=== PATIENT | female | born 1955 | race Caucasian/White ===

== ENCOUNTER → 2016-08-25 | Outpatient (CLI) | payer OTHER ==
[2016-08-25 10:55] LABS: CH 31.7; CHCM 33.5; HCT 40.7 % (34.0-46.0); HDW 2.22; HGB 13.3 gm/dL (11.4-16.0); MCHC 32.6 g/dL (31.0-37.0); MCV 95.1 fL (80.0-100.0); Mean Platelet Volume 8.5; RBC 4.28 m/uL (3.80-5.40); RDW 12.8 % (11.5-15.5); WBC 4.1 k/uL (3.8-10.6)
[2016-08-25 10:57] LABS: ALT 56 U/L (9-52); AST 35 U/L (14-36); Alkaline Phosphatase 90 U/L (38-126); Anion Gap 8 mmol/L; Blood Urea Nitrogen 17 mg/dL (7-17); Calcium 9.5 mg/dL (8.4-10.2); Carbon Dioxide 29 mmol/L (22-30); Chloride 106 mmol/L (98-107); Cholesterol 256 mg/dL (<200); Glucose 94 mg/dL (74-99); Non-African American GFR(MDRD) >60 (>60 ml/min/1.73 sqM); Potassium 4.7 mmol/L (3.5-5.1); Sodium 143 mmol/L (137-145); Total Bilirubin 0.8 mg/dL (0.2-1.3); Total Protein 7.2 g/dL (6.3-8.2); Triglycerides 88 mg/dL (<150)
[2016-08-25 11:20] LABS: HDL Cholesterol 127 mg/dL (40-60)
== END | disposition home or self-care (01) ==
LOC: LABWHC1 10:20
PROVIDERS: ATTEND Internal Medicine
DX: Z00.00 Encounter for general adult medical examination without abnormal findings (principal); E78.2 Mixed hyperlipidemia; M19.90 Unspecified osteoarthritis, unspecified site
CPT/HCPCS: 36415; 80053; 80061; 84439; 84443; 85027

== ENCOUNTER → 2016-11-22 | Outpatient (CLI) | payer OTHER ==
[2016-11-22 11:02] LABS: ALT 53 U/L (9-52); AST 43 U/L (14-36); Cholesterol 174 mg/dL (<200); Creatine Kinase 47 U/L (30-135); HDL Cholesterol 105 mg/dL (40-60); Triglycerides 91 mg/dL (<150)
== END ==
LOC: LABWHC1 09:44
PROVIDERS: ATTEND Internal Medicine
DX: E78.2 Mixed hyperlipidemia (principal)
CPT/HCPCS: 36415; 80061; 82550; 84450; 84460

== ENCOUNTER → 2017-02-26 | Outpatient (CLI) | payer OTHER ==
[2017-02-26 11:36] LABS: ALT 38 U/L (9-52); AST 26 U/L (14-36); Cholesterol 175 mg/dL (<200); Creatine Kinase 38 U/L (30-135); HDL Cholesterol 104 mg/dL (40-60); Triglycerides 97 mg/dL (<150)
== END | disposition home or self-care (01) ==
LOC: LABWHC1 10:30
PROVIDERS: ATTEND Internal Medicine
DX: E78.2 Mixed hyperlipidemia (principal)
CPT/HCPCS: 36415; 80061; 82550; 84450; 84460

== ENCOUNTER → 2017-08-23 | Outpatient (CLI) | payer OTHER ==
--- NOTE | 2017-08-24 09:52 | MM ---
Reason for exam: screening (asymptomatic). Last mammogram was performed 1 year and 5 months ago. History: Patient is postmenopausal, has history of other cancer at age 29, and is nulliparous. Physical Findings: A clinical breast exam by your physician is recommended on an annual basis and results should be correlated with mammographic findings. MG Screening Mammo w CAD Bilateral CC and MLO view(s) were taken. Prior study comparison: March 15, 2016, bilateral MG screening mammo w CAD. March 10, 2015, bilateral MG screening mammo w CAD. The breast tissue is heterogeneously dense. This may lower the sensitivity of mammography. There is no discrete abnormality. No significant changes when compared with prior studies. ASSESSMENT: Negative, BI-RAD 1 RECOMMENDATION: Routine screening mammogram of both breasts in 1 year.
== END | disposition home or self-care (01) ==
LOC: RADMAMWWP 11:07
PROVIDERS: ATTEND Obstetrics & Gynecology
DX: Z12.31 Encounter for screening mammogram for malignant neoplasm of breast (principal)
CPT/HCPCS: 77067

== ENCOUNTER → 2017-08-31 | Outpatient (CLI) | payer OTHER ==
[2017-08-31 11:49] LABS: HCT 40.9 % (34.0-46.0); HGB 13.4 gm/dL (11.4-16.0); MCHC 32.7 g/dL (31.0-37.0); MCV 94.9 fL (80.0-100.0); Mean Platelet Volume 8.7; Platelet Count 180 k/uL (150-450); RBC 4.31 m/uL (3.80-5.40); RDW 13.4 % (11.5-15.5); WBC 5.1 k/uL (3.8-10.6)
[2017-08-31 12:25] LABS: Anion Gap 10 mmol/L; Blood Urea Nitrogen 13 mg/dL (7-17); Calcium 9.6 mg/dL (8.4-10.2); Carbon Dioxide 29 mmol/L (22-30); Chloride 105 mmol/L (98-107); Cholesterol 195 mg/dL (<200); Glucose 89 mg/dL (74-99); HDL Cholesterol 106 mg/dL (40-60); LDL Cholesterol,Calculated 74 mg/dL (0-99); Potassium 4.2 mmol/L (3.5-5.1); Sodium 144 mmol/L (137-145); Triglycerides 75 mg/dL (<150)
== END | disposition home or self-care (01) ==
LOC: LABWHC1 11:28
PROVIDERS: ATTEND Internal Medicine
DX: E78.2 Mixed hyperlipidemia (principal); M19.90 Unspecified osteoarthritis, unspecified site
CPT/HCPCS: 36415; 80048; 80061; 85027

== ENCOUNTER → 2018-03-01 | Outpatient (CLI) | payer OTHER ==
[2018-03-01 11:31] LABS: Cholesterol 184 mg/dL (<200); HDL Cholesterol 107 mg/dL (40-60); LDL Cholesterol,Calculated 60 mg/dL (0-99); Triglycerides 84 mg/dL (<150)
== END | disposition home or self-care (01) ==
LOC: LABWHC1 10:31
PROVIDERS: ATTEND Internal Medicine
DX: E78.2 Mixed hyperlipidemia (principal)
CPT/HCPCS: 36415; 80061

== ENCOUNTER → 2018-09-26 | Outpatient (CLI) | payer OTHER ==
[2018-09-26 13:10] LABS: HGB 13.9 gm/dL (11.4-16.0); MCH 31.2 pg (25.0-35.0); MCHC 32.2 g/dL (31.0-37.0); MCV 96.9 fL (80.0-100.0); Platelet Count 167 k/uL (150-450); RBC 4.44 m/uL (3.80-5.40); RDW 12.9 % (11.5-15.5); WBC 7.2 k/uL (3.8-10.6)
[2018-09-26 19:45] LABS: T4, Free (Free Thyroxine) 1.2 ng/dL (0.80-1.80)
[2018-09-26 20:26] LABS: Albumin 4.3 g/dL (3.80-4.90); Albumin/Globulin Ratio 2.05 (1.60-3.17); Anion Gap 9.6 mmol/L (4.00-12.00); Calcium 9.8 mg/dL (8.7-10.3); Carbon Dioxide 29.4 mmol/L (21.6-31.8); Globulin 2.1 g/dL (1.6-3.3); Potassium 4.7 mmol/L (3.5-5.5); Total Bilirubin 0.6 mg/dL (0.2-1.2); Total Protein 6.4 g/dL (6.2-8.2)
== END | disposition home or self-care (01) ==
LOC: LABWHC1 11:59
PROVIDERS: ATTEND Internal Medicine
DX: Z00.00 Encounter for general adult medical examination without abnormal findings (principal); E78.2 Mixed hyperlipidemia; M19.90 Unspecified osteoarthritis, unspecified site
CPT/HCPCS: 36415; 80053; 80061; 84439; 84443; 85027

== ENCOUNTER → 2018-12-10 | Outpatient (CLI) | payer OTHER ==
--- NOTE | 2018-12-11 12:21 | MM ---
Reason for exam: screening (asymptomatic). Last mammogram was performed 1 year and 4 months ago. History: Patient is postmenopausal, has history of other cancer at age 29, and is nulliparous. Physical Findings: A clinical breast exam by your physician is recommended on an annual basis and results should be correlated with mammographic findings. MG Screening Mammo w CAD Bilateral CC and MLO view(s) were taken. Prior study comparison: August 23, 2017, bilateral MG screening mammo w CAD. March 15, 2016, bilateral MG screening mammo w CAD. The breast tissue is heterogeneously dense. This may lower the sensitivity of mammography. Stable benign calcifications. There is no discrete abnormality. No significant changes when compared with prior studies. ASSESSMENT: Benign, BI-RAD 2 RECOMMENDATION: Routine screening mammogram of both breasts in 1 year.
== END | disposition home or self-care (01) ==
LOC: RADMAMWWP 10:53
PROVIDERS: ATTEND Internal Medicine
DX: Z12.31 Encounter for screening mammogram for malignant neoplasm of breast (principal)
CPT/HCPCS: 77067

== ENCOUNTER → 2019-07-15 | Outpatient (CLI) | payer OTHER | END | disposition home or self-care (01) | LOC: LABWHC1 14:29 | PROVIDERS: ATTEND Internal Medicine | DX: E55.9 Vitamin D deficiency, unspecified (principal) | CPT/HCPCS: 36415; 82306 ==

== ENCOUNTER → 2019-09-17 | Outpatient (CLI) | payer OTHER ==
--- NOTE | 2019-09-18 07:31 | US ---
EXAMINATION TYPE: US carotid duplex BILAT DATE OF EXAM: 09/17/2019 COMPARISON: NONE CLINICAL HISTORY: R40.4 Transient alteration of awareness. EXAM MEASUREMENTS: RIGHT: Peak Systolic Velocity (PSV) cm/sec ----- Right CCA: 81.2 ----- Right ICA: 106 ----- Right ECA: 67.4 ICA/CCA ratio: 1.3 RIGHT: End Diastole cm/sec ----- Right CCA: 24.8 ----- Right ICA: 40.5 ----- Right ECA: 14.0 LEFT: Peak Systolic Velocity (PSV) cm/sec ----- Left CCA: 116 ----- Left ICA: 119 ----- Left ECA: 74.8 ICA/CCA ratio: 1.0 LEFT: End Diastole cm/sec ----- Left CCA: 37.3 ----- Left ICA: 38.8 ----- Left ECA: 13.9 VERTEBRALS (direction of flow): Right Vertebral: Antegrade Left Vertebral: Antegrade Rhythm: Normal Mild plaque bilateral bulbs. No elevated velocities, no significant stenosis IMPRESSION: Mild degree of grayscale atheromatous plaquing with no sonographically evident hemodynam ically significant stenosis within either visualized carotid arterial system. Criteria for Assigning % of Stenosis / Diameter reduction (Estimation based on the indirect measurements of the internal carotid artery velocities (ICA PSV). 1. Normal (no stenosis)=ICA PSV < 125 cm/s: ratio < 2.0: ICA EDV<40 cm/s. 2. Less than 50% stenosis=ICA PSV < 125 cm/s: ratio < 2.0: ICA EDV<40 cm/s. 3. 50 to 69% stenosis=ICA PSV of 125 to 230 cm/s: ration 2.0 ? 4.0: ICA EDV 40-100 cm/s. 4. Greater than 70% stenosis to near occlusion= ICA PSV > 230 cm/s: ratio > 4.0: ICA EDV > 100 cm/s. 5. Near occlusion= ICA PSV velocities may be low or undetectable: variable ratio and ICA EDV. 6. Total occlusion=unable to detect flow.
== END | disposition home or self-care (01) ==
LOC: RADUSWWP 15:49
PROVIDERS: ATTEND Internal Medicine
DX: I65.23 Occlusion and stenosis of bilateral carotid arteries (principal)
CPT/HCPCS: 93880

== ENCOUNTER → 2019-09-17 | Outpatient (CLI) | payer OTHER ==
[2019-09-17 17:47] LABS: Basophils % (A) 1 %; Eosinophils # (A) 0.1 k/uL (0-0.7); Eosinophils % (A) 2 %; HGB 13.3 gm/dL (11.4-16.0); Lymphocytes # (A) 1.4 k/uL (1.0-4.8); Lymphocytes % (A) 25 %; MCH 31.1 pg (25.0-35.0); MCHC 32.4 g/dL (31.0-37.0); MCV 96.1 fL (80.0-100.0); Mean Platelet Volume 8.9; Monocytes # (A) 0.2 k/uL (0-1.0); Monocytes % (A) 5 %; Neutrophils # (A) 3.5 k/uL (1.3-7.7); Neutrophils % (A) 65 %; Platelet Count 167 k/uL (150-450); RBC 4.27 m/uL (3.80-5.40); RDW 12.4 % (11.5-15.5); WBC 5.3 k/uL (3.8-10.6)
[2019-09-17 23:03] LABS: Erythrocyte Sedimentation Rate 8 mm/hr (0-20)
[2019-09-18 00:55] LABS: ALT 49 U/L (8-44); AST 39 U/L (13-35); African American GFR (CKD) 90.3 (60.0-200.0); Alkaline Phosphatase 90 U/L (41-126); C Reactive Protein <0.4 mg/dL (0.0-0.8); Calcium 9.3 mg/dL (8.7-10.3); Carbon Dioxide 32.7 mmol/L (21.6-31.8); Chloride 106 mmol/L (96-109); Creatine Kinase 35 U/L (26-186); Globulin 1.8 g/dL (1.6-3.3); Glucose 86 mg/dL (70-110); Magnesium 2.1 mg/dL (1.5-2.4); Non-African American GFR(CKD) 77.9 (60.0-200.0); Potassium 4.2 mmol/L (3.5-5.5); Sodium 142 mmol/L (135-145); Total Bilirubin 0.6 mg/dL (0.3-1.2); Total Protein 6.3 g/dL (6.2-8.2)
== END | disposition home or self-care (01) ==
LOC: LABWHC1 15:55
PROVIDERS: ATTEND Internal Medicine
DX: E78.5 Hyperlipidemia, unspecified (principal); E03.9 Hypothyroidism, unspecified; R00.1 Bradycardia, unspecified; M35.9 Systemic involvement of connective tissue, unspecified; E55.9 Vitamin D deficiency, unspecified
CPT/HCPCS: 36415; 80053; 82306; 82550; 83735; 84443; 85025; 85652; 86038; 86140

== ENCOUNTER → 2019-12-19 | Outpatient (CLI) | payer MEDICARE ==
[2019-12-19 16:17] LABS: ALT 57 U/L (8-44); AST 31 U/L (13-35); Albumin/Globulin Ratio 2.15 (1.60-3.17); Alkaline Phosphatase 83 U/L (41-126); Bilirubin, Conjugated <0.20 mg/dL (0.20-0.40); Chol/HDL Ratio 1.85; Cholesterol 178 mg/dL (0-200); LDL Cholesterol,Calculated 55.4 mg/dL (0.0-131.0); Total Bilirubin 0.4 mg/dL (0.2-1.2); Total Protein 6.3 g/dL (6.2-8.2)
== END | disposition home or self-care (01) ==
LOC: LABWHC1 11:05
PROVIDERS: ATTEND Internal Medicine
DX: R94.5 Abnormal results of liver function studies (principal)
CPT/HCPCS: 36415; 80061; 80076

== ENCOUNTER → 2020-01-23 | Outpatient (CLI) | payer MEDICARE ==
[2020-01-23 18:44] LABS: Albumin 4.4 g/dL (3.80-4.90); Bilirubin, Conjugated 0.3 mg/dL (0.20-0.40); Bilirubin,Unconjugated 0.4 mg/dL; Globulin 2.2 g/dL (1.6-3.3); Total Bilirubin 0.7 mg/dL (0.2-1.2); Total Protein 6.6 g/dL (6.2-8.2)
[2020-01-23 19:47] LABS: Hepatitis A Antibody IgM Non-Reactive (Non-Reactive); Hepatitis B Core IgM Non-Reactive (Non-Reactive); Hepatitis B Surface Antigen Non-Reactive (Non-Reactive); Hepatitis C IgG Antibody Non-Reactive (Non-Reactive)
== END | disposition home or self-care (01) ==
LOC: LABWHC1 11:09
PROVIDERS: ATTEND Internal Medicine
DX: K75.9 Inflammatory liver disease, unspecified (principal)
CPT/HCPCS: 36415; 80074; 80076; 85652

== ENCOUNTER → 2020-03-30 | Outpatient (CLI) | payer MEDICARE ==
--- NOTE | 2020-03-30 12:04 | BD ---
EXAMINATION TYPE: Axial Bone Density DATE OF EXAM: 03/30/2020 COMPARISON: 05/31/2016 CLINICAL HISTORY: Postmenopausal female. Height: 65.7 IN Weight: 158 LBS RISK FACTORS HISTORY OF: Active: YES Postmenopausal woman: AGE 48 MEDICATIONS: Osteoporosis Medications: NOT NOW Which medication: Actonel BONIVA How Lon YEARS Additional Medications: CALCIUM, VIT D, CHOLESTEROL MEDS, ADVIL EXAM MEASUREMENTS: Bone mineral densitometry was performed using the [employer] System. Bone mineral density as measured about the Lumbar spine is: ----- L1-L4(G/cm2): 0.996 T Score Values are as follows: ----- L2: -1.9 ----- L3: -1.2 ----- L4: -1.6 ----- L1-L4: -1.5 Bone mineral density has: Decreased -5.4% since study of: 05/31/2016 Bone mineral density about the R hip (g/cm2): 0.825 Bone mineral density about the L hip (g/cm2): 0.767 T Score values are as follows: -----R Neck: -1.5 -----L Neck: -2.0 -----R Total: -0.9 -----L Total: -1.3 Bone mineral density has: Decreased -3.3% since study of: 05/31/2016 IMPRESSION: Osteopenia remains present (T Score between -2.5 and -1). There remains slightly increased risk of fracture and the patient may be considered for treatment. Re-Screen 2-5 years. NOTE: T-SCORE=SD OF THE YOUNG ADULT MEAN.
--- NOTE | 2020-03-30 13:22 | MM ---
Reason for exam: screening (asymptomatic). Last mammogram was performed 1 year and 4 months ago. History: Patient is postmenopausal, has history of other cancer at age 29, and is nulliparous. Physical Findings: A clinical breast exam by your physician is recommended on an annual basis and results should be correlated with mammographic findings. MG 3D Screening Mammo W/Cad Bilateral CC and MLO view(s) were taken. Prior study comparison: December 10, 2018, bilateral MG screening mammo w CAD. August 23, 2017, bilateral MG screening mammo w CAD. The breast tissue is heterogeneously dense. This may lower the sensitivity of mammography. There are benign appearing round calcifications bilaterally. There is chronic nodularity in the left breast. There is no discrete abnormality. ASSESSMENT: Benign, BI-RAD 2 RECOMMENDATION: Routine screening mammogram of both breasts in 1 year.
== END | disposition home or self-care (01) ==
LOC: RADMAMWWP 09:31
PROVIDERS: ATTEND Obstetrics & Gynecology
DX: Z12.31 Encounter for screening mammogram for malignant neoplasm of breast (principal); M85.80 Other specified disorders of bone density and structure, unspecified site
CPT/HCPCS: 77063; 77067; 77080

== ENCOUNTER → 2021-04-26 | Outpatient (CLI) | payer MEDICARE ==
--- NOTE | 2021-04-28 14:03 | MM ---
Reason for exam: screening (asymptomatic). Last mammogram was performed 1 year and 1 month ago. History: Patient is postmenopausal, has history of other cancer at age 29, and is nulliparous. Physical Findings: A clinical breast exam by your physician is recommended on an annual basis and results should be correlated with mammographic findings. MG 3D Screening Mammo W/Cad Bilateral CC and MLO view(s) were taken. Prior study comparison: March 30, 2020, bilateral MG 3d screening mammo w/cad. December 10, 2018, bilateral MG screening mammo w CAD. The breast tissue is heterogeneously dense. This may lower the sensitivity of mammography. No significant changes when compared with prior studies. ASSESSMENT: Benign, BI-RAD 2 RECOMMENDATION: Routine screening mammogram of both breasts in 1 year.
== END | disposition home or self-care (01) ==
LOC: RADMAMWWP 14:18
PROVIDERS: ATTEND Obstetrics & Gynecology
DX: Z12.31 Encounter for screening mammogram for malignant neoplasm of breast (principal)
CPT/HCPCS: 77063; 77067

== ENCOUNTER → 2021-06-03 | Outpatient (CLI) | payer MEDICARE ==
[2021-06-03 18:54] LABS: Basophils # (A) 0.05 X 10*3/uL (0.00-0.10); Basophils % (A) 0.9 %; Eosinophils # (A) 0.15 X 10*3/uL (0.04-0.35); Eosinophils % (A) 2.8 %; HCT 42.6 % (37.2-46.3); HGB 14.1 g/dL (12.0-15.0); Lymphocytes # (A) 1.12 X 10*3/uL (0.90-5.00); Lymphocytes % (A) 21.1 %; MCH 31.4 pg (27.0-32.0); MCHC 33.1 g/dL (32.0-37.0); MCV 94.9 fL (80.0-97.0); Monocytes # (A) 0.44 X 10*3/uL (0.20-1.00); Monocytes % (A) 8.3 %; Neutrophils # (A) 3.53 X 10*3/uL (1.80-7.70); Neutrophils % (A) 66.7 %; Platelet Count 176 X 10*3/uL (140-440); RBC 4.49 X 10*6/uL (4.10-5.20); RDW 12.1 % (11.5-14.5)
[2021-06-03 20:39] LABS: Erythrocyte Sedimentation Rate 10 mm/Hr (0-30)
[2021-06-03 21:01] LABS: ALT 23 U/L (8-44); AST 20 U/L (13-35); African American GFR (CKD) 95.8 (60.0-200.0); Albumin 4.5 g/dL (3.8-4.9); Albumin/Globulin Ratio 1.92 (1.60-3.17); Alkaline Phosphatase 82 U/L (41-126); BUN/Creat Ratio 20.58 Ratio (12.00-20.00); Blood Urea Nitrogen 15.5 mg/dL (9.0-27.0); Calcium 9.4 mg/dL (8.7-10.3); Carbon Dioxide 24.7 mmol/L (21.6-31.8); Chloride 105 mmol/L (96-109); Chol/HDL Ratio 1.92 Ratio; Creatine Kinase 39 U/L (26-186); Globulin 2.4 g/dL (1.6-3.3); Glucose 97 mg/dL (70-110); LDL Cholesterol,Calculated 65.9 mg/dL (0.0-131.0); Non-African American GFR(CKD) 82.7 (60.0-200.0); Potassium 4.7 mmol/L (3.5-5.5); Sodium 142 mmol/L (135-145); Total Protein 6.9 g/dL (6.2-8.2)
[2021-06-03 21:31] LABS: C Reactive Protein <0.30 mg/dL (0.00-0.80)
== END | disposition home or self-care (01) ==
LOC: LABWHC1 10:50
PROVIDERS: ATTEND Internal Medicine
DX: Z00.00 Encounter for general adult medical examination without abnormal findings (principal); D64.9 Anemia, unspecified; E87.8 Other disorders of electrolyte and fluid balance, not elsewhere classified; E78.5 Hyperlipidemia, unspecified; E03.9 Hypothyroidism, unspecified; E55.9 Vitamin D deficiency, unspecified
CPT/HCPCS: 36415; 80053; 80061; 82306; 82550; 84439; 84443; 85025; 85652; 86140

== ENCOUNTER → 2022-04-27 | Outpatient (CLI) | payer MEDICARE ==
--- NOTE | 2022-04-27 14:46 | BD ---
EXAMINATION TYPE: Axial Bone Density DATE OF EXAM: 04/27/2022 COMPARISON: DEXA bone scan 2019 CLINICAL HISTORY: 66 year old Female. ICD-10 CODE: N95.1 Menopausal Height: 67 Weight: 171.4 FRAX RISK QUESTIONS: Alcohol (3 or more units per day): no Family History (Parent hip fracture): no Glucocorticoids (More than 3mos): no (Ex: prednisone, prednisolone, methylprednisolone, dexamethasone, and hydrocortisone). History of Fracture in Adulthood: no Secondary Osteoporosis: 1. Type 1 Diabetes: no 2. Hyperthyroidism: no 3. Menopause before 45: no 4. Malnutrition: no 5. Chronic liver disease: no Rheumatoid Arthritis: no Current Tobacco Use: no RISK FACTORS HISTORY OF: Surgery to Spine/Hip(right/left)/Wrist (right/left): no Family History of Osteoporosis: no Active: no Diet low in dairy products/other sources of calcium: yes Postmenopausal woman: yes Lost more than 2 inches in height since high school: no MEDICATIONS: Osteoporosis Medications: alendronate How Lon year Additional History: EXAM MEASUREMENTS: Bone mineral densitometry was performed using the [employer]cean System. Bone mineral density as measured about the Lumbar spine is: ----- L1-L4(G/cm2): 1.019 T Score Values are as follows: ----- L1: -1.6 ----- L2: -1.6 ----- L3: -1.3 ----- L4: -1.1 ----- L1-L4: -1.3 Bone mineral density has: decreased -2.9 % since study of: 05.31.2016 Bone mineral density about the R hip (g/cm2): 0.833 Bone mineral density about the L hip (g/cm2): 0.797 T Score values are as follows: -----R Neck: -1.5 -----L Neck: -1.7 -----R Total: -0.8 -----L Total: -1.2 Bone mineral density has: decreased -1.9 % since study of: 05.31.2016 FRAX%s: The graph provided illustrates a 10.2% chance for a major osteoporotic fx and a 1.4% chance f or the hips probability for fx in 10 years time. IMPRESSION: Osteopenia (T Score between -2.5 and -1) is redemonstrated. There is slightly increased risk of fracture and the patient may be considered for treatment. Re-Screen 2-5 years. NOTE: T-SCORE=SD OF THE YOUNG ADULT MEAN.
--- NOTE | 2022-04-28 19:12 | MM ---
Reason for Exam: Screening (asymptomatic). Last screening mammogram was performed 12 month(s) ago. Patient History: Menarche at age 11. Patient has no children. Postmenopausal. Other cancer, age 29. Risk Values: Holley 5 year model risk: 1.9%. NCI Lifetime model risk: 6.4%. Prior Study Comparison: 12/10/2018 Bilateral Screening Mammogram, [facility]. 03/30/2020 Bilateral Screening Mammogram, [facility]. 04/26/2021 Bilateral Screening Mammogram, [facility]. Tissue Density: The breast tissue is heterogeneously dense. This may lower the sensitivity of mammography. Findings: Analyzed By CAD. There is no suspicious group of microcalcifications or new suspicious mass in either breast. Overall Assessment: Negative, BI-RAD 1 Management: Screening Mammogram of both breasts in 1 year. A clinical breast exam by your physician is recommended on an annual basis and results should be correlated with mammographic findings. Electronically signed and approved by: Tr Hare DO
== END | disposition home or self-care (01) ==
LOC: RADMAMWWP 11:52
PROVIDERS: ATTEND Obstetrics & Gynecology
DX: Z12.31 Encounter for screening mammogram for malignant neoplasm of breast (principal); N95.1 Menopausal and female climacteric states; M85.88 Other specified disorders of bone density and structure, other site
CPT/HCPCS: 77063; 77067; 77080

== ENCOUNTER → 2022-06-08 | Outpatient (CLI) | payer MEDICARE ==
--- NOTE | 2022-06-08 12:13 | XR ---
EXAMINATION TYPE: XR chest 2V DATE OF EXAM: 06/08/2022 COMPARISON: Chest x-ray 03/10/2015 HISTORY: Redness of breath TECHNIQUE: Frontal and lateral views of the chest are obtained. FINDINGS: There is no focal air space opacity, pleural effusion, or pneumothorax seen. The cardiac silhouette size is within normal limits. Prominent lung volume may be indicative of underlying COPD. The osseous structures are intact, there is thoracic spondylosis, there is spinal curvature. IMPRESSION: No acute cardiopulmonary process.
== END | disposition home or self-care (01) ==
LOC: RADXRMAIN 10:29
PROVIDERS: ATTEND Internal Medicine
DX: R06.02 Shortness of breath (principal)
CPT/HCPCS: 71046

== ENCOUNTER → 2022-06-08 | Outpatient (CLI) | payer MEDICARE ==
[2022-06-08 15:29] LABS: Basophils # (A) 0.04 X 10*3/uL (0.00-0.10); Eosinophils # (A) 0.11 X 10*3/uL (0.04-0.35); Eosinophils % (A) 2.6 %; HCT 40.8 % (37.2-46.3); HGB 13.6 g/dL (12.0-15.0); Immature Grans, Automated 0.2 %; Lymphocytes # (A) 1.09 X 10*3/uL (0.90-5.00); MCH 31.9 pg (27.0-32.0); MCHC 33.3 g/dL (32.0-37.0); MCV 95.6 fL (80.0-97.0); Monocytes % (A) 7.2 %; NRBC Per 100 WBC 0 /100 WBCS (0.0-0.0); Neutrophils # (A) 2.64 X 10*3/uL (1.80-7.70); Platelet Count 172 X 10*3/uL (140-440); RBC 4.27 X 10*6/uL (4.10-5.20); RDW 12.4 % (11.5-14.5); WBC 4.19 X 10*3/uL (4.50-10.00)
[2022-06-08 16:07] LABS: ALT 52 U/L (8-44); AST 41 U/L (13-35); African American GFR (CKD) 90.2 (60.0-200.0); Albumin 4.4 g/dL (3.8-4.9); Albumin/Globulin Ratio 1.66 (1.60-3.17); Alkaline Phosphatase 79 U/L (41-126); BUN/Creat Ratio 15.37 Ratio (12.00-20.00); Blood Urea Nitrogen 12.1 mg/dL (9.0-27.0); C Reactive Protein <0.30 mg/dL (0.00-0.80); Calcium 9.3 mg/dL (8.7-10.3); Carbon Dioxide 25.4 mmol/L (20.0-27.5); Chloride 106 mmol/L (96-109); Creatine Kinase 74 U/L (26-186); Globulin 2.6 g/dL (1.6-3.3); Glucose 93 mg/dL (70-110); Magnesium 1.9 mg/dL (1.5-2.4); Non-African American GFR(CKD) 77.8 (60.0-200.0); Potassium 4.3 mmol/L (3.5-5.5); Sodium 142 mmol/L (135-145)
[2022-06-08 16:37] LABS: Erythrocyte Sedimentation Rate 6 mm/Hr (0-30)
== END | disposition home or self-care (01) ==
LOC: LABWHC1 10:55
PROVIDERS: ATTEND Internal Medicine
DX: D64.9 Anemia, unspecified (principal); E87.8 Other disorders of electrolyte and fluid balance, not elsewhere classified; E78.5 Hyperlipidemia, unspecified; E05.90 Thyrotoxicosis, unspecified without thyrotoxic crisis or storm; E55.9 Vitamin D deficiency, unspecified; R00.1 Bradycardia, unspecified
CPT/HCPCS: 36415; 80053; 82306; 82550; 83735; 84100; 84443; 85025; 85652; 86140

== ENCOUNTER → 2022-07-10 | Outpatient (CLI) | payer MEDICARE ==
[2022-07-10 18:47] LABS: Chol/HDL Ratio 2.09 Ratio; LDL Cholesterol,Calculated 75.3 mg/dL (0.0-131.0)
== END | disposition home or self-care (01) ==
LOC: LABWHC1 10:37
PROVIDERS: ATTEND Internal Medicine
DX: Z00.00 Encounter for general adult medical examination without abnormal findings (principal); E78.5 Hyperlipidemia, unspecified
CPT/HCPCS: 36415; 80061

== ENCOUNTER → 2022-07-28 | Outpatient (CLI) | payer MEDICARE ==
--- NOTE | 2022-07-28 11:57 | NM ---
EXAMINATION TYPE: NM stress cardiolite complete DATE OF EXAM: 07/28/2022 COMPARISON: NONE HISTORY: Chest pain TECHNIQUE: After the intravenous administration of 9.3 mCi Tc 99m Sestamibi - Rest images obtained 6 5 minutes post injection. The patient exercised using a ROXY protocol and 1 minute prior to peak e xercise was injected with 25 mCi Tc 99m Sestamibi - Stress images obtained 35 minutes post injection. FINDINGS: Targeted heart rate was achieved during performance of the study. Review of stress and rest SPECT oliva ges demonstrates reduced uptake involving the apical inferior myocardium.. Gated analysis shows norm al wall motion with an estimated left ventricular ejection fraction of 56 %. IMPRESSION: Apicoinferior myocardial uptake worse and stressed images. There is artifact in the region. There is to be a degree of GI uptake and artifact. Would correlate clinically. Although a small stress-induced area of reversible ischemia is not excluded this could be artifactual cardiology consultation recomm ended.
--- NOTE | 2022-07-28 17:26 | CA ---
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 ICD-10 Codes: Patient History: DIFFICULTY IN BREATHING, PALPITATIONS, ELEVATED CHOLESTEROL LEVELS Medications: ALENDRONATE, ATORVASTATIN, CALCIUM, FIBER, MULTIVITAMIN, VIT D, ZYRTEC, INHALER, ADVIL Meds past 24 hrs: Pretest Chest Pain: STRESS TEST Bart Protocol Exercise Duration (min:sec): 06:[address] Depressions (mm): Angina Score: Paz Score: Resting HR (bpm): 58 Peak HR (bpm): 147 Resting BP (mmHg): 109 / 89 Peak BP (mmHg): 191 / 94 MPHR: 153 Target HR: 130 % MPHR: 96 METS: 8.3 Total Dose: Peak Dose: Atropine: Double Product: 58200 BP Response: Stress Termination: TARGET HR REACHED/MAX EXERTION Stress Symptoms: CHEST PAIN Stress Summary: ECG ANALYSIS Resting ECG: Normal sinus rhythm normal axis normal intervals Stress ECG: Patient exercised on Bart protocol for a total of 6 minutes and 40 seconds achieving 8 mets 85% of predicted maximal heart rate without chest pain or diagnostic ST segment depression CONCLUSIONS Average exercise tolerance Negative stress test by EKG criteria Cardiolite portion of the stress test will be reported separately by the radiologist Dr. Kosta Acuña MD (Electronically Signed) Final Date: 28 July 2022 17:25
== END | disposition home or self-care (01) ==
LOC: RADNMMAIN 08:25
PROVIDERS: ATTEND Internal Medicine
DX: I20.0 Unstable angina (principal); I99.8 Other disorder of circulatory system
CPT/HCPCS: 93017; 78452; A9500

== ENCOUNTER → 2023-07-20 | Outpatient (CLI) | payer MEDICARE ==
[2023-07-20 18:22] LABS: Basophils # (A) 0.03 X 10*3/uL (0.00-0.10); Basophils % (A) 0.6 %; HCT 43.5 % (37.2-46.3); HGB 13.9 g/dL (12.0-15.0); Lymphocytes # (A) 0.77 X 10*3/uL (0.90-5.00); Lymphocytes % (A) 15.2 %; MCH 30.3 pg (27.0-32.0); Monocytes # (A) 0.39 X 10*3/uL (0.20-1.00); Monocytes % (A) 7.7 %; NRBC Per 100 WBC 0 X 10*3/uL (0.00-0.01); Neutrophils # (A) 3.75 X 10*3/uL (1.80-7.70); Neutrophils % (A) 74.3 %; Platelet Count 179 X 10*3/uL (140-440); RBC 4.58 X 10*6/uL (4.10-5.20); RDW 13.3 % (11.5-14.5); WBC 5.05 X 10*3/uL (4.50-10.00)
[2023-07-20 18:31] LABS: Erythrocyte Sedimentation Rate 10 mm/Hr (0-30)
[2023-07-20 18:54] LABS: BUN/Creat Ratio 16.22 Ratio (12.00-20.00); Blood Urea Nitrogen 14.6 mg/dL (9.0-27.0); C Reactive Protein <0.30 mg/dL (0.00-0.80); Chol/HDL Ratio 1.69 Ratio; Creatine Kinase 42 U/L (26-186); Glucose 99 mg/dL (70-110); LDL Cholesterol,Calculated 56.3 mg/dL (0.0-131.0); Phosphorus 3.1 mg/dL (2.4-5.1); Uric Acid 4.8 mg/dL (2.9-7.7); VLDL Calculation 18.72 mg/dL (5.00-40.00)
[2023-07-20 18:55] LABS: % Iron Saturation 14.01 (12.00-45.00); ALT 27 U/L (8-44); AST 25 U/L (13-35); Albumin 4.7 g/dL (3.8-4.9); Albumin/Globulin Ratio 1.88 Ratio (1.60-3.17); Alkaline Phosphatase 92 U/L (41-126); Calcium 9.8 mg/dL (8.7-10.3); Carbon Dioxide 24.3 mmol/L (21.6-31.8); Chloride 104 mmol/L (96-109); Ferritin 44.2 ng/mL (10.0-291.0); Globulin 2.5 g/dL (1.6-3.3); Iron 58 UG/DL (50-170); Potassium 4.6 mmol/L (3.5-5.5); Sodium 140 mmol/L (135-145); Total Bilirubin 0.4 mg/dL (0.3-1.2); Total Iron Binding Capacity 414 UG/DL (228-460); Total Protein 7.2 g/dL (6.2-8.2)
== END | disposition home or self-care (01) ==
LOC: LABWHC1 10:48
PROVIDERS: ATTEND Internal Medicine
DX: Z00.00 Encounter for general adult medical examination without abnormal findings (principal); I10 Essential (primary) hypertension; D64.9 Anemia, unspecified; E87.8 Other disorders of electrolyte and fluid balance, not elsewhere classified; E78.5 Hyperlipidemia, unspecified; R94.5 Abnormal results of liver function studies
CPT/HCPCS: 36415; 80053; 80061; 82306; 82550; 82728; 83540; 83550; 83735; 84100; 84443; 84550; 85025; 85652; 86140

== ENCOUNTER → 2023-07-27 | Outpatient (CLI) | payer MEDICARE ==
--- NOTE | 2023-07-30 16:12 | MM ---
Reason for Exam: Screening (asymptomatic). Last mammogram was performed 1 year(s) and 3 month(s) ago. Patient History: Menarche at age 11. Patient has no children. Postmenopausal. Other cancer, age 29. Risk Values: Holley 5 year model risk: 1.9%. NCI Lifetime model risk: 6.2%. Prior Study Comparison: 03/30/2020 Bilateral Screening Mammogram, [facility]. 04/26/2021 Bilateral Screening Mammogram, [facility]. 04/27/2022 Bilateral MG 3D screening mammo w/cad, [facility]. Tissue Density: The breast tissue is heterogeneously dense. This may lower the sensitivity of mammography. Findings: Analyzed By CAD. Abdomen appears symmetrical and stable. No significant interval change is evident. There are benign punctate and spherical calcifications present bilaterally No suspicious groups of microcalcifications, spiculated or lobular masses, architectural distortion or other secondary signs of malignancy are mammographically apparent. Overall Assessment: Benign, BI-RAD 2 Management: Screening Mammogram of both breasts in 1 year. A negative mammogram report should not preclude additional follow up of suspicious palpable abnormalities. Patient should continue monthly self breast exam. A clinical breast exam by your physician is recommended on an annual basis and results should be correlated with mammographic findings. Electronically signed and approved by: Kvng Leone D.O. Radiologis
== END | disposition home or self-care (01) ==
LOC: RADMAMWWP 11:22
PROVIDERS: ATTEND Internal Medicine
DX: Z12.31 Encounter for screening mammogram for malignant neoplasm of breast (principal); Z78.0 Asymptomatic menopausal state
CPT/HCPCS: 77063; 77067

== ENCOUNTER → 2024-07-23 | Outpatient (CLI) | payer MEDICARE ==
[2024-07-23 16:07] LABS: HCT 45.3 % (37.2-46.3); HGB 14.4 g/dL (12.0-15.0); MCH 30.6 pg (27.0-32.0); MCHC 31.8 g/dL (32.0-37.0); MCV 96.4 FL (80.0-97.0); Mean Platelet Volume 11.9 FL (9.5-12.2); NRBC Per 100 WBC 0 X 10*3/uL (0.00-0.01); Platelet Count 187 X 10*3/uL (140-440); RDW 12.3 % (11.5-14.5); WBC 5.35 X 10*3/uL (4.50-10.00)
[2024-07-23 16:35] LABS: Erythrocyte Sedimentation Rate 8 mm/Hr (0-30)
[2024-07-23 16:39] LABS: ALT 51 U/L (8-44); AST 31 U/L (13-35); Albumin 4.6 g/dL (3.8-4.9); Albumin/Globulin Ratio 1.77 Ratio (1.60-3.17); Alkaline Phosphatase 103 U/L (41-126); BUN/Creat Ratio 19.89 Ratio (12.00-20.00); Blood Urea Nitrogen 17.9 mg/dL (9.0-27.0); C Reactive Protein <0.30 mg/dL (0.00-0.80); Calcium 9.6 mg/dL (8.7-10.3); Carbon Dioxide 26.3 mmol/L (21.6-31.8); Chloride 104 mmol/L (96-109); Chol/HDL Ratio 1.76 Ratio; Creatine Kinase 41 U/L (26-186); Globulin 2.6 g/dL (1.6-3.3); Glucose 100 mg/dL (70-110); Iron 140 UG/DL (50-170); LDL Cholesterol,Calculated 72.8 mg/dL (0.0-131.0); Magnesium 1.9 mg/dL (1.5-2.4); Phosphorus 3.2 mg/dL (2.4-5.1); Potassium 4.4 mmol/L (3.5-5.5); Sodium 143 mmol/L (135-145); Total Bilirubin 0.6 mg/dL (0.3-1.2); Total Iron Binding Capacity 413 UG/DL (228-460); Total Protein 7.2 g/dL (6.2-8.2); Uric Acid 5.1 mg/dL (2.9-7.7); VLDL Calculation 16.22 mg/dL (5.00-40.00)
== END | disposition home or self-care (01) ==
LOC: LABWHC1 11:09
PROVIDERS: ATTEND Internal Medicine
DX: Z00.00 Encounter for general adult medical examination without abnormal findings (principal); I10 Essential (primary) hypertension; E55.9 Vitamin D deficiency, unspecified; E87.8 Other disorders of electrolyte and fluid balance, not elsewhere classified; E78.5 Hyperlipidemia, unspecified; D64.9 Anemia, unspecified
CPT/HCPCS: 36415; 80053; 80061; 82306; 82550; 83540; 83550; 83735; 84100; 84443; 84550; 85027; 85652; 86140

== ENCOUNTER → 2024-07-28 | Outpatient (CLI) | payer MEDICARE | END | disposition home or self-care (01) | LOC: LABPRL 09:40 | PROVIDERS: ATTEND Internal Medicine | DX: Z00.00 Encounter for general adult medical examination without abnormal findings (principal); I10 Essential (primary) hypertension; D64.9 Anemia, unspecified; E87.8 Other disorders of electrolyte and fluid balance, not elsewhere classified; E78.5 Hyperlipidemia, unspecified; E55.9 Vitamin D deficiency, unspecified | CPT/HCPCS: 82272 ==

== ENCOUNTER → 2025-01-26 | Outpatient (CLI) | payer MEDICARE ==
[2025-01-26 18:26] LABS: Basophils # (A) 0.04 X 10*3/uL (0.00-0.10); Basophils % (A) 0.7 %; Eosinophils # (A) 0.07 X 10*3/uL (0.04-0.35); Eosinophils % (A) 1.2 %; HCT 37.2 % (37.2-46.3); HGB 12.1 g/dL (12.0-15.0); Lymphocytes # (A) 1.38 X 10*3/uL (0.90-5.00); Lymphocytes % (A) 24.3 %; MCH 31.5 pg (27.0-32.0); MCHC 32.5 g/dL (32.0-37.0); MCV 96.9 FL (80.0-97.0); Monocytes # (A) 0.45 X 10*3/uL (0.20-1.00); Monocytes % (A) 7.9 %; NRBC Per 100 WBC 0 X 10*3/uL (0.00-0.01); Neutrophils # (A) 3.72 X 10*3/uL (1.80-7.70); Neutrophils % (A) 65.7 %; Platelet Count 208 X 10*3/uL (140-440); RBC 3.84 X 10*6/uL (4.10-5.20); RDW 12.6 % (11.5-14.5); WBC 5.67 X 10*3/uL (4.50-10.00)
== END | disposition home or self-care (01) ==
LOC: LABWHC1 13:15
PROVIDERS: ATTEND Internal Medicine
DX: D64.9 Anemia, unspecified (principal)
CPT/HCPCS: 36415; 83735; 85025

== ENCOUNTER → 2025-02-04 | Outpatient (CLI) | payer MEDICARE ==
[2025-02-04 19:38] LABS: % Iron Saturation 14.49 (12.00-45.00); Ferritin 18.3 ng/mL (10.0-291.0)
== END | disposition home or self-care (01) ==
LOC: LABWHC1 14:30
PROVIDERS: ATTEND Internal Medicine
DX: D50.0 Iron deficiency anemia secondary to blood loss (chronic) (principal)
CPT/HCPCS: 36415; 82728; 83540; 83550